=== PATIENT | female | born 1990 | race Caucasian/White ===

== ENCOUNTER 2019-06-21 19:37 | Emergency (ER) | payer OTHER ==
[~2019-06-21] VITALS: Ht 162.6 cm; Wt 69.9 kg
--- NOTE | 2019-06-21 19:59 | NUR ---
ED Nurse Note: Pt states that she was at home doing laundry and fell down the stairs. Pt states that she was alone when the injury occured. Pt states that her left ankle rolled or bent when the injury happened. Pt states that she is in 10/10 pain. Small abrasion on top of left foot. Awaiting ERMD at bedside
--- NOTE | 2019-06-21 20:03 | NUR ---
ED Nurse Note: ERMD at bedside
--- NOTE | 2019-06-21 20:04 | NUR ---
ED Nurse Note: xray at bedside
--- NOTE | 2019-06-21 20:14 | NUR ---
ED Nurse Note: ERPA at bedside
--- NOTE | 2019-06-21 20:21 | Emergency Room Report ---
History of Present Illness General Chief Complaint: Lower Extremity Injury Source: Patient Present Illness HPI 29-year-old female with no symptom past medical history here complaining of left ankle pain after twisting it earlier today. Is ambulating to the ED with a wheelchair. Rates the pain 10 out of 10 without radiation. Has not taken medication for symptom relief. No ecchymosis noted. Denies any tingling or numbness. Denies head injury or loss of consciousness. Denies any calf tenderness. Denies at this time Allergies: Coded Allergies: No Known Allergies (Unverified , 06/21/19) Patient History Past Medical History: see triage record Past Surgical History: none Pertinent Family History: none Last Menstrual Period: 06/18/19 Now: No : 0 Immunizations: UTD Reviewed Nursing Documentation: PMH: Agreed; PSxH: Agreed Nursing Documentation-PMH Past Medical History: No History, Except For Hx Cardiac Problems: No Hx Hypertension: No Hx Pacemaker: No Hx Asthma: Yes Hx COPD: No Hx Diabetes: No Hx Cancer: No Hx Gastrointestinal Problems: No Hx Dialysis: No History Of Psychiatric Problem: No Hx Neurological Problems: No Hx Cerebrovascular Accident: No Hx Seizures: No Review of Systems All Other Systems: negative except mentioned in HPI Physical Exam Vital Signs Date Time Temp Pulse Resp B/P (MAP) Pulse Ox O2 Delivery O2 Flow Rate FiO2 06/21/19 19:49 98.2 91 18 113/74 (87) 97 Room Air Sp02 EP Interpretation: reviewed, normal General Appearance: no apparent distress, alert, GCS 15, non-toxic Head: normocephalic, atraumatic Eyes: bilateral eye normal inspection, bilateral eye PERRL ENT: hearing grossly normal, normal pharynx, no angioedema, normal voice Neck: full range of motion, supple/symm/no masses Respiratory: chest non-tender, lungs clear, normal breath sounds, no rhonchi, no respiratory distress, no wheezing, speaking full sentences Cardiovascular #1: regular rate, rhythm, no edema Cardiovascular #2: 2+ dorsalis pedis (R), 2+ dorsalis pedis (L) Gastrointestinal: normal bowel sounds, non tender, soft, non-distended, no guarding, no rebound Genitourinary: no CVA tenderness Musculoskeletal: back normal, no calf tenderness, pelvis stable, non-tender, swelling - Left lateral malleolus Neurologic: alert, motor strength/tone normal, oriented x3, sensory intact, responsive, speech normal Psychiatric: judgement/insight normal, memory normal, mood/affect normal, no suicidal/homicidal ideation Skin: no rash, abrasion - left foot Lymphatic: no adenopathy Procedures Splinting Splinting : Consent: Verbal Location: Left ankle Hand-Made Type: plaster Splint: poserior short Pre-Proc Neuro Vasc Exam: normal Post-Proc Neuro Vasc Exam: normal Patient Tolerated: Well Complications: None Medical Decision Making PA Attestation All my diagnosis and treatment plans were reviewed ad discussed with my supervising physician Dr. Lu Diagnostic Impression: Primary Impression: Left ankle sprain Additional Impression: Foot abrasion ER Course 29-year-old female with no symptom past medical history here complaining of left ankle pain after twisting it earlier today. Is ambulating to the ED with a wheelchair. Rates the pain 10 out of 10 without radiation. Has not taken medication for symptom relief. No ecchymosis noted. Denies any tingling or numbness. Denies head injury or loss of consciousness. Denies any calf tenderness. Denies at this time Ddx considered but are not limited to: ankle sprain, ankle strain, ankle fracture, ankle contusion Vital signs: are WNL, pt. is afebrile H&PE are most consistent with: Left ankle sprain, abrasion foot ORDERS: ankle x-ray, ibuprofen, Robaxin ED INTERVENTIONS: Left ankle splint with crutches provided, bacitracin applied to the abrasion DISCHARGE: At this time pt. is stable for d/c to home. Will provide printed patient care instructions, and any necessary prescriptions. Care plan and follow up instructions have been discussed with the patient prior to discharge. Follow-up with office support specialist, take medication as directed, if worsening symptoms return to emergency room Other X-Ray Diagnostic Results Other X-Ray Diagnostic Results : X-Ray ordered: left ankle # of Views/Limited Vs Complete: 3 View Indication: Swelling EP Interpretation: Yes PA Xray: Interpretation reviewed, by supervising MD, and agrees with findings. Interpretation: no dislocation, no fractures Impression: No acute disease Electronically Signed by: Edgar Matta PA-C Last Vital Signs Date Time Temp Pulse Resp B/P (MAP) Pulse Ox O2 Delivery O2 Flow Rate FiO2 06/21/19 19:49 98.2 91 18 113/74 (87) 97 Room Air Disposition: HOME, SELF-CARE Condition: Stable Scripts Methocarbamol* (ROBAXIN-500*) 500 Mg Tablet 500 MG ORAL TID PRN for For Pain, #15 TAB 0 Refills Prov: Edgar Lemon 06/21/19 Ibuprofen* (MOTRIN*) 600 Mg Tablet 600 MG ORAL THREE TIMES A DAY, #30 TAB 0 Refills Prov: Edgar Lmeon 06/21/19 Patient Instructions: Abrasion, [id number], Ankle Sprain Additional Instructions: Follow-up with office support specialist, take medication as directed, avoid strenuous physical activity, if worsening symptoms return to the emergency room Edgar Lemon Jun 21, 2019 20:21
[2019-06-21] MEDS ORDERED: IBUPROFEN600 MG ORAL (20:23)
[2019-06-21] MEDS ORDERED: ROBAXIN-500MG ORAL (20:23)
--- NOTE | 2019-06-21 20:32 | NUR ---
ED Nurse Note: electronic prepress system operator at bedside to apply splint
[2019-06-21] MEDS ORDERED: Bacitracin Oint UD TOPIC ONE (20:45)
[2019-06-21 20:50] VITALS: BP 113/74
--- NOTE | 2019-06-21 20:50 | NUR ---
ER DISCHARGE NOTE: Patient is cleared to be discharged home per ERMD, pt is aox4, on room air, with stable vital signs. pt was given dc and prescription instructions, pt was able to verbalize understanding, pt id band removed. pt is able to ambulate with steady gait. pt took all belongings. Addendum: 06/21/19 at 2057 by MANAV ER DISCHARGE NOTE: Patient is cleared to be discharged home per ERMD, pt is aox4, on room air, with stable vital signs. pt was given dc and prescription instructions, pt was able to verbalize understanding, pt id band removed. pt is able to ambulate with steady gait. pt took all belongings. pt given splint for foot and crutches.
--- NOTE | 2019-06-22 09:04 | Diagnostic Imaging Report ---
Indication: Trauma, pain, status post fall Technique: 3 views of the left ankle Comparison: none Findings: No acute fractures. No dislocations. Joint spaces are preserved Impression: Negative
== END 2019-06-21 20:50 | disposition home or self-care (01) ==
LOC: EMR 20:15
DX: S93.402A Sprain of unspecified ligament of left ankle, initial encounter (principal); S90.812A Abrasion, left foot, initial encounter; X50.1XXA Overexertion from prolonged static or awkward postures, initial encounter; Y92.9 Unspecified place or not applicable
CPT/HCPCS: 29515; 99283